=== PATIENT | male | born 1990 ===

== ENCOUNTER 2016-12-12 08:56 | Emergency (ER) | payer OTHER ==
[2016-12-12 09:26] VITALS: TEMP 98.4; O2SAT 100
[2016-12-12] MEDS ORDERED: Silver Sulfadiazine 1% Cream (20 gm) ONE ×2 (09:26→09:53)
[2016-12-12] MEDS ORDERED: Tetanus/Diphtheria Toxoids 0.5 ml Syringe IM ONE ×2 (09:26→10:12)
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
[2016-12-12] MEDS ORDERED: Silver Sulfadiazine 1% Cream (20 gm) TOP STA (09:35)
[2016-12-12] MEDS ORDERED: ceFAZolin 1 gm FROZEN Premix 1 GM/50 ML ML IVPB ONE (10:12)
[2016-12-12 10:44] VITALS: BP 113/77; PULSE 98; RESP 18
== END 2016-12-12 10:44 | disposition home or self-care (01) ==
LOC: C.ER 08:56
DX: T23.202A Burn of second degree of left hand, unspecified site, initial encounter (principal); T22.212A Burn of second degree of left forearm, initial encounter; T22.211A Burn of second degree of right forearm, initial encounter; T23.271A Burn of second degree of right wrist, initial encounter; X12.XXXA Contact with other hot fluids, initial encounter; Y93.89 Activity, other specified; Y92.000 Kitchen of unspecified non-institutional (private) residence as the place of occurrence of the external cause
CPT/HCPCS: 90471; 90714; 96365; 96375; 99285; J0690; J2270

== ENCOUNTER 2016-12-15 10:33 | Emergency (ER) | payer OTHER ==
[2016-12-15] MEDS ORDERED: Sodium Chloride 0.9% 1,000 ML IV ONE (12:11)
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
[2016-12-15] MEDS ORDERED: Sodium Chloride 0.9% 1,000 ML ONE (12:48)
[2016-12-15 13:13] LABS: BASO % 0.3 % (0.0-2.0); EOS # 0.1 K/uL (0.0-0.7); EOS % 0.9 % (0.0-4.0); HEMATOCRIT 44.5 % (35.0-51.0); LYMPH # 1.5 K/uL (1.0-4.3); LYMPH % 11.4 % (20.0-40.0); MEAN CELL VOLUME 81.2 fL (80.0-94.0); MEAN CORPUSCULAR HGB CONC 33.3 g/dL (33.0-37.0); MEAN PLATELET VOLUME 7.9 fL (7.2-11.7); MONO # 0.9 K/uL (0.0-0.8); MONO % 6.6 % (0.0-10.0); RED CELL DISTRIBUTION WIDTH 12.9 % (11.5-14.5); WHITE BLOOD COUNT 13.1 K/uL (4.8-10.8)
[2016-12-15 13:24] LABS: CHLORIDE 100 mmol/L (98-107); POTASSIUM 4.7 mmol/L (3.6-5.2); SODIUM 139 mmol/L (132-148)
[2016-12-15 13:26] LABS: GFR AFRICAN-AMERICAN > 60
[2016-12-15 13:27] LABS: ALB/GLOB RATIO 1.2 (1.0-2.1); ALKALINE PHOSPHATASE 64 U/L (38-126); ALT/SGPT 39 U/L (21-72); AST/SGOT 46 U/L (17-59); BILIRUBIN,TOTAL 1.3 mg/dL (0.2-1.3); BLOOD UREA NITROGEN 15 mg/dL (9-20); CARBON DIOXIDE 28 mmol/L (22-30); GLUCOSE,RANDOM 85 mg/dL (75-110); TOTAL PROTEIN 7.9 g/dL (6.3-8.3)
[2016-12-15 13:28] LABS: CALCIUM 8.9 mg/dl (8.6-10.4)
[2016-12-15] MEDS ORDERED: Morphine 4 MG/ML VIAL ONE (14:08)
[2016-12-15 14:21] VITALS: TEMP 99.8
[2016-12-15] MEDS ORDERED: Silver Sulfadiazine 1% Cream (20 gm) TOP STA (14:28)
[2016-12-15] MEDS ORDERED: Silver Sulfadiazine 1% Cream (20 gm) ONE (14:56)
[2016-12-15 16:00] VITALS: BP 120/75; PULSE 98; RESP 18; O2SAT 99
== END 2016-12-15 16:04 | disposition home or self-care (01) ==
LOC: C.ER 10:33
DX: T23.271D Burn of second degree of right wrist, subsequent encounter (principal); T22.221D Burn of second degree of right elbow, subsequent encounter; X10.2XXD Contact with fats and cooking oils, subsequent encounter
CPT/HCPCS: 80053; 85025; 96361; 96374; 99285; J2270; J7040